=== PATIENT | female | born 1960 | race Caucasian/White ===

== ENCOUNTER → 2017-01-10 | Outpatient (CLI) | payer BC ==
--- NOTE | ~2017-01-10 | CT4 ---
[facility] A Service of [facility] [place] RADIOLOGY TEXT RESULTS PATIENT: CLAUDIA BRUNER LOCATION: [facility] : 60 UNIT #: [id number] AGE: [address]: MARGY PICHARDO MD SEX: F ORDER DR: [id number] [address] [id number] MR#: [id number] Acc #: [id number] NAME: CLAUDIA BRUNER : 1960 SEX: F STUDY DATE/TIME: 01/10/2017 13:45 UNIT: [facility] ROOM: STUDY DESCRIPTION: CT Abd and Pelv Wo Cont Attending Physician: Margy Pichardo M.D. Referring Physician: Margy Pichardo M.D. Ordering Physician: Margy Pichardo M.D. Primary Care Physician: Salty Doyle M.D. MEDICAL IMAGING REPORT This report is preliminary unless electronic signature is present. EXAM CT abdomen and pelvis. INDICATIONS Generalized abdominal pain for 2 weeks. Right mid abdominal pain. Hematuria. TECHNIQUE CT of the abdomen and pelvis without contrast. Coronal and sagittal reconstructions were obtained. This CT exam was performed with one or more of the following radiation dose reduction techniques: automatic exposure control, adjustment of mA and/or kV according to patient size, and iterative reconstruction. COMPARISON None available. FINDINGS ABDOMEN: The solid abdominal organs are grossly normal. There are no urinary calculi. No hydronephrosis. Gallbladder is surgically absent. The bowel is not dilated. The appendix is normal. The abdominal aorta is normal in caliber. PELVIS: No pelvic mass. Bladder is unremarkable. The uterus is surgically absent. The ovaries are within normal limits. IMPRESSION 1. No acute findings in the abdomen or pelvis to account for the patient's symptoms. 2. No urinary calculi. Normal appendix. Dictated by... [facility] A Service [facility] RADIOLOGY TEXT RESULTS PATIENT: CLAUDIA BRUNER LOCATION: [facility] : 60 UNIT #: [id number] AGE: [address]: MARGY PICHARDO MD SEX: F ORDER DR: Vasyl Lutz M.D. THIS IS AN ELECTRONICALLY VERIFIED REPORT Vasyl Lutz M.D. at 01/13/2017 2:59 PM YARI/ophelia TD: 01/10/2017 17:40 JOB #: [id number] MEDICAL IMAGING REPORT Page 1 of 1
== END | disposition home or self-care (01) ==
LOC: SCT 13:20
DX: R10.84 Generalized abdominal pain (principal)
CPT/HCPCS: 74176